=== PATIENT | male | born 1970 | race Caucasian/White ===

== ENCOUNTER 2016-03-14 05:19 | Day surgery (SDC) | payer OTHER ==
[2016-03-11 11:59] VITALS: BMI 38.8
[2016-03-14] VITALS (13 sets, daily range): BP systolic 126–145; BP diastolic 58–82; PULSE 83–98; RESP 17–20; Ht 188 cm; Wt 140.4 kg
[~2016-03-14] VITALS: Ht 188 cm; Wt 140.4 kg
[~2016-03-14 05:19] MED LIST: BUPIVACAINE 0.25%/EPI (SDV) 30 ML INJ INJ ONE
[2016-03-14] MEDS ORDERED: SOD CHLORIDE 0.9% 1,000 ML IV ONE (05:30)
[2016-03-14] MEDS ORDERED: CEFAZOLIN 2 GM/50 ML (PMX) 50 ML IVPB ONE (05:30)
[2016-03-14] MEDS ORDERED: BENAZEPRIL PO (06:15)
[2016-03-14] MEDS ORDERED: LIPITOR PO (06:15)
[2016-03-14] MEDS ORDERED: METFORMIN PO (06:15)
[2016-03-14] MEDS ORDERED: ASPIRIN PO (06:15)
[2016-03-14] MEDS ORDERED: BUPIVACAINE 0.25%/EPI (SDV) 30 ML INJ ONE (07:02)
[2016-03-14] MEDS ORDERED: MIDAZOLAM 1 MG/ML 2 ML INJ ONE (07:27)
[2016-03-14] MEDS ORDERED: SUCCINYLCHOLINE CHLORIDE 100 MG/5 ML SYG IV ONE (07:27)
[2016-03-14] MEDS ORDERED: PROPOFOL 20 ML ONE ×2 (07:27→08:18)
[2016-03-14] MEDS ORDERED: FENTAnyl 50 MCG/ML VIAL ONE ×2 (07:28→08:16)
[2016-03-14] MEDS ORDERED: METOCLOPRAMIDE 10 MG INJ ONE (07:28)
[2016-03-14] MEDS ORDERED: MEPERIDINE 25 MG INJ IV PRN (08:00)
[2016-03-14] MEDS ORDERED: METOCLOPRAMIDE 10 MG INJ IV PRN (08:00)
[2016-03-14] MEDS ORDERED: DIPHENHYDRAMINE 50 MG INJ IV PRN (08:00)
[2016-03-14] MEDS ORDERED: LABETALOL HCL 20MG INJ IV PRN (08:00)
[2016-03-14] MEDS ORDERED: hydrALAzine 20 MG INJ IV PRN (08:00)
[2016-03-14] MEDS ORDERED: OXYCODONE/ACETAMINOPHEN (5/325) TAB PO PRN ×2 (08:00)
[2016-03-14] MEDS ORDERED: ONDANSETRON 4 MG INJ IV PRN ×2 (08:00→09:00)
[2016-03-14] MEDS ORDERED: HYDROmorphONE (0.2 MG/ML) 10ML SYG IV PRN ×3 (08:00)
[2016-03-14] MEDS ORDERED: CEFAZOLIN 1 GM INJ ONE (08:11)
[2016-03-14] MEDS ORDERED: EPHEDrine SULFATE 50 MG/5 ML SYG ONE (08:11)
[2016-03-14] MEDS ORDERED: KETOROLAC 30 MG INJ IV PRN (09:00)
[2016-03-14] MEDS ORDERED: HYDROCODONE/APAP (5/325) TAB PO PRN (09:00)
[2016-03-14] MEDS ORDERED: IBUPROFEN 600 MG TAB PO PRN (09:00)
--- NOTE | 2016-03-14 11:24 | OPR ---
DATE OF OPERATION: 03/14/2016 PREOPERATIVE DIAGNOSES: 1. Sebaceous cyst of the upper back. 2. Sebaceous cyst of the posterior neck. POSTOPERATIVE DIAGNOSES: 1. Sebaceous cyst of the upper back. 2. Sebaceous cyst of the posterior neck. OPERATION PERFORMED: 1. Excision sebaceous cyst of the upper back approximately 3 cm. 2. Excision sebaceous cyst posterior neck approximately 1 cm. SURGEON: Jonathan Blanchard MD [employer] SUPERVISOR: None. ANESTHESIA: General endotracheal. ANESTHESIOLOGIST: Sheri Matos MD FLUIDS: Crystalloid. ESTIMATED BLOOD LOSS: Minimal. SPECIMEN: Sebaceous cyst x2. COMPLICATIONS: None. INDICATIONS FOR SURGERY: The patient is a morbidly obese 45-year-old male with a history of hyperte nsion, diabetes who presented to the office with a several year history of sebaceous cyst of the upp er back and the posterior neck. He had recently had an infection in these areas. He was therefore scheduled for elective excision to prevent further episodes of dissection and for definitive patholo gical diagnosis. All risks and benefits of the procedure including but not limited to wound infecti on, excessive bleeding, postoperative seroma/hematoma formation, cyst recurrence, etc. were all expl ained to the patient in full detail. He fully understood and wished to proceed with the procedure. Informed consent was obtained. Patient was brought to the operating room and placed supine on the operating room table. Bilateral sequential compression devices were placed on both lower extremities and a dose of broad spectrum pe rioperative intravenous antibiotics was given. After the induction of smooth general endotracheal a nesthesia, the patient was positioned in the left lateral decubitus position with the right side up. The sebaceous cyst of the upper back and posterior neck were preoperatively marked and confirmed w ith the patient in the holding area. The posterior neck and upper back were then prepped and draped in standard surgical fashion. Attention was first turned to the upper back sebaceous cyst which wa s the larger one and 0.25% Marcaine with epinephrine was injected in a radial fashion around the are a of the cyst. An elliptical incision was made over the cyst using a 15 blade scalpel. The incisio n was carried down through the skin and dermal tissues using sharp dissection using Metzenbaum sciss ors. Dissection was done around the mass down to the level of the subcutaneous tissues and then the mass was then transected at its base and passed off the field as specimen. The wound cavity was th en irrigated with warm normal saline. Hemostasis was inspected for and noted to be adequate. The i ncision was then closed in layers using interrupted 3-0 Vicryl suture for the dermal layer. The ski n was reapproximated using 4-0 Monocryl suture in a subcuticular fashion. Further local anesthesia was applied around the skin of the incision site. Attention was then turned to the posterior neck s ebaceous cyst after anesthetizing the skin with 0.25% Marcaine with epinephrine. An elliptical inci tripp was made around the area of the cyst using a 15 blade scalpel and carried down through the skin into the subcutaneous tissues. The mass was dissected circumferentially using Metzenbaum scissors and then transected at its base and passed off the field as specimen. Hemostasis was then inspected for and noted to be adequate. The wound cavity was irrigated with warm normal saline and the irrig ant returned clear. Further local anesthesia was applied around the skin of the incision site and t he skin was reapproximated using 4-0 Monocryl suture in a subcuticular fashion. Both incisions were then cleaned and Dermabond was applied, and the patient was awoken from anesthesia and transported to the recovery room in stable condition. All counts were correct at the end of case x2. Dictated By: JONATHAN NAIK/DERRELL Conf#: [id number] DID#: [id number]
== END 2016-03-14 10:35 | disposition home or self-care (01) ==
LOC: SDS 05:19
PROVIDERS: ATTEND Surgery
DX: L72.0 Epidermal cyst (principal); I10 Essential (primary) hypertension; E11.9 Type 2 diabetes mellitus without complications; E66.9 Obesity, unspecified; Z68.39 Body mass index [BMI] 39.0-39.9, adult
CPT/HCPCS: 11403; 11422; 82962; 88304; J0330; J0690; J2250; J2405; J2765; J3010; Z7512; Z7610